=== PATIENT | female | born 1985 | race African-American/Black ===

== ENCOUNTER 2016-11-13 18:50 | Emergency (ER) | payer SELFPAY ==
--- NOTE | 2016-11-13 19:17 | ER Document Report ---
ED Medical Screen (RME) - General Stated Complaint: SORE THROAT AND CHEST Mode of Arrival: Ambulatory Information source: Patient Notes: Patient presents to the emergency department with complaints of sore throat and chest hurts when she takes a deep breath the past 2-3 days. Denies fever vomiting reports some diarrhea. I have greeted and performed a rapid initial assessment of this patient. A comprehensive ED assessment and evaluation of the patient, analysis of test results and completion of the medical decision making process will be conducted by additional ED providers. TRAVEL OUTSIDE OF THE [place] IN LAST 30 DAYS: No - Related Data Allergies/Adverse Reactions: tramadol [Tramadol] Allergy (Verified 01/23/16 16:10) Past Medical History Pulmonary Medical History: Reports: Hx Asthma, Hx Bronchitis Neurological Medical History: Reports: Hx Seizures Past Surgical History: Reports: Hx Oral Surgery - Immunizations Hx Diphtheria, Pertussis, Tetanus Vaccination: Yes - UTD Physical Exam - Vital signs Vitals: Temp Pulse Resp BP Pulse Ox 98.4 F 83 14 109/56 L 98 11/13/16 19:09 11/13/16 19:09 11/13/16 19:09 11/13/16 19:09 11/13/16 19:09 Course - Vital Signs Vital signs: Temp Pulse Resp BP Pulse Ox 98.4 F 83 14 109/56 L 98 11/13/16 19:09 11/13/16 19:09 11/13/16 19:09 11/13/16 19:09 11/13/16 19:09
[2016-11-13] MEDS ORDERED: PREDNISONE 20 MG TABLET PO ONE (21:21)
[2016-11-13] MEDS ORDERED: IPRATROPIUM/ALBUTEROL 0.5-2.5 MG/3 ML AMPUL NEB ONE (21:21)
--- NOTE | 2016-11-13 21:27 | ER Document Report ---
ED Respiratory Problem - General Chief Complaint: Sore Throat Stated Complaint: SORE THROAT AND CHEST Time seen by provider: 21:21 Mode of Arrival: Ambulatory Information source: Patient Notes: 31-year-old female presents to ED for cough or sore throat wheezing. States that her chest hurts when she takes deep breaths for the last 2 or 3 days. Denies any nausea vomiting or fever. TRAVEL OUTSIDE OF THE [place] IN LAST 30 DAYS: No - HPI Patient complains to provider of: Cough, Other - Sore throat and wheezing Onset: Other - 2-3 days Duration: Continuous Severity: Moderate Pain Level: 2 Context: Smoker Cough: Nonproductive Sputum amount: None Associated symptoms: Cough, PND, Runny nose, Sinus pain/pressure, Sore Throat Similar symptoms previously: No Recently seen / treated by doctor: No - Related Data Allergies/Adverse Reactions: tramadol [Tramadol] Allergy (Verified 11/13/16 19:16) Past Medical History - General Information source: Patient - Social History Smoking Status: Current Every Day Smoker Cigarette use (# per day): Yes - 2 CIGS PER DAY Chew tobacco use (# tins/day): No Smoking Education Provided: Yes - less than 1 minute Frequency of alcohol use: None Drug Abuse: None Occupation: call center Lives with: Other - Roommates Family History: denies: Arthritis, CAD, COPD, CVA, DM, Hyperlipidemia, Hypertension, Malignancy, Thyroid Disfunction Patient has suicidal ideation: No Patient has homicidal ideation: No - Past Medical History Cardiac Medical History: Reports: None Pulmonary Medical History: Reports: Hx Asthma, Hx Bronchitis EENT Medical History: Reports: None Neurological Medical History: Reports: Hx Seizures - One seizure Endocrine Medical History: Reports: None Renal/ Medical History: Reports: None Malignancy Medical History: Reports: None GI Medical History: Reports: None Musculoskeltal Medical History: Reports None Skin Medical History: Reports None Psychiatric Medical History: Reports: None Traumatic Medical History: Reports: None Infectious Medical History: Reports: None Past Surgical History: Reports: Hx Oral Surgery - Immunizations Immunizations up to date: Yes Hx Diphtheria, Pertussis, Tetanus Vaccination: Yes - UTD History of Influenza Vaccine for 07/2016 - 12/2016 Season: No Hx Pneumococcal Vaccination: 10/19/10 Review of Systems - Review of Systems Constitutional: Recent illness EENT: Nose discharge, Sinus discharge, Throat pain Cardiovascular: No symptoms reported Respiratory: Cough Gastrointestinal: No symptoms reported Genitourinary: No symptoms reported Female Genitourinary: No symptoms reported Musculoskeletal: No symptoms reported Skin: No symptoms reported Hematologic/Lymphatic: No symptoms reported Neurological/Psychological: No symptoms reported Physical Exam - Vital signs Vitals: Temp Pulse Resp BP Pulse Ox 98.4 F 83 14 109/56 L 98 11/13/16 19:09 11/13/16 19:09 11/13/16 19:09 11/13/16 19:09 11/13/16 19:09 Interpretation: Normal - General General appearance: Appears well, Alert - HEENT Head: Normocephalic, Atraumatic Eyes: Normal Pupils: PERRL Ears: Normal External canal: Normal Tympanic membrane: Normal Sinus: Normal Nasal: Purulent discharge, Swelling Mouth/Lips: Normal Mucous membranes: Normal Pharynx: Post nasal drainage Neck: Normal - Respiratory Respiratory status: No respiratory distress Chest status: Pain with cough, Pain with deep breathing. No: Tender, Pain on movement Breath sounds: Nonproductive cough, Wheezing Chest palpation: Normal - Cardiovascular Rhythm: Regular Heart sounds: Normal auscultation Murmur: No - Abdominal Inspection: Normal Distension: No distension Bowel sounds: Normal Tenderness: Nontender Organomegaly: No organomegaly - Back Back: Normal, Nontender - Extremities General upper extremity: Normal inspection, Nontender, Normal color, Normal ROM , Normal temperature General lower extremity: Normal inspection, Nontender, Normal color, Normal ROM , Normal temperature, Normal weight bearing. No: Gregg's sign - Neurological Neuro grossly intact: Yes Cognition: Normal Orientation: AAOx4 Bhakti Coma Scale Eye Opening: Spontaneous [place] Coma Scale Verbal: Oriented Bhakti Coma Scale Motor: Obeys Commands Bhakti Coma Scale Total: 15 Speech: Normal Motor strength normal: LUE, RUE, LLE, RLE Sensory: Normal - Psychological Associated symptoms: Normal affect, Normal mood - Skin Skin Temperature: Warm Skin Moisture: Dry Skin Color: Normal Course - Re-evaluation Re-evalutation: 11/13/16 22:59 Lungs clear no wheezes noted after her breathing treatments and prednisone. Patient sent home with prescription for prednisone and albuterol inhaler. Patient to follow-up with primary doctor - Vital Signs Vital signs: Temp Pulse Resp BP Pulse Ox 98.6 F 71 17 107/62 99 11/13/16 21:54 11/13/16 21:54 11/13/16 21:54 11/13/16 21:54 11/13/16 21:54 Discharge - Discharge Clinical Impression: Bronchospasm Upper respiratory infection Qualifiers: URI type: unspecified URI Qualified Code(s): J06.9 - Acute upper respiratory infection, unspecified Condition: Stable Disposition: HOME, SELF-CARE Instructions: Family Physicians / Practices Additional Instructions: UPPER RESPIRATORY ILLNESS: You have a viral infection of the respiratory passages -- a "cold." This common infection causes nasal congestion, drainage, and often sore throat and cough. It is highly contagious. The disease usually lasts about 10 to 14 days. There is no "cure" for the viral infection -- it must run its course. If there is a complication, such as bacterial infection in the nose, sinuses, middle ear, or bronchial tubes, antibiotics may be required. The antibiotics won't affect the virus. Drink plenty of fluids. A humidifier may help. An expectorant medication or decongestant may make you more comfortable. Use acetaminophen or ibuprofen for fever or aches. See the doctor if fever persists over two days, if there is any significant worsening of your symptoms, or if you simply fail to improve as expected. BRONCHOSPASM: You have tightness in the bronchial tubes, called bronchospasm. This often occurs with bronchial infections. Allergies, inhaled chemicals, and polluted or cold air can also provoke bronchospasm. It's more likely in patients with asthma in the family. Emergency treatment of bronchospasm may include adrenaline shots or bronchodilator aerosol. You may feel lightheaded and have a rapid pulse for an hour or two. Rest and get plenty of fluids. At home, we'll treat you with a bronchodilator inhaler. Antibiotics and corticosteroids may be required for some patients. Until you recover, avoid chemical fumes, dusts, pollens, and exercising in very cold or dry air. If you smoke, stop now!! If you develop a fever, increased wheezing, chest pain, or severe shortness of breath, you should contact the doctor immediately. COUGH-SUPPRESSANT & EXPECTORANT MEDICATION: You are to use a cough medication as needed for relief of symptoms. This medicine is a combination of an expectorant (to make the mucous thinner and more easily "coughed up") and a cough suppressant (to reduce the frequency of coughing). The cough-suppressant medicine is related to narcotics. You may experience mild nausea and sleepiness. Some patients who are very sensitive to narcotics may have stomach pain from this medicine. Taking the medicine with food reduces these side effects. Do not drive or work with machinery until you know how this medicine affects you. The expectorant should have no side effects. Iodine-containing expectorants (such as organidin) should not be taken by persons with active thyroid disease unless approved by your doctor. Call the doctor if you develop shortness of breath, hives, rash, itching, lightheadedness, or severe nausea and vomiting. INHALED BRONCHODILATORS: You have received a treatment of and/or prescription for an inhaled bronchodilator -- a medication which stimulates the airways in the lung to dilate. This improves the flow of air in asthma, bronchitis, and emphysema. These medicines have some similarity to adrenaline, and can cause similar side effects: shakiness, racing heart, and a sense of nervousness. These side effects decrease with time. Contact your doctor if these side effects are severe. Do not over-use the medicine. Too-frequent use of the inhaler may make it ineffective. Call your doctor if the inhaler is not controlling your symptoms at the prescribed doses. STEROID MEDICATION: You have been given an injection of or oral medicine of the cortisone/ steroid class. This medication is used to control inflammation or allergy. Bertrand t is usually only given for a short period of time, until the acute process subsides. There are usually no side effects from short-term use of cortisone-like medications. Some persons feel an increased sense of well-being and are not sleepy at bedtime. Long-term use of cortisone medications is best avoided, unless required for a severe condition. If your condition does not remit, or relapses after the course of corticosteroid medication, you should consult your physician. USE OF ACETAMINOPHEN (Tylenol): Acetaminophen may be taken for pain relief or fever control. It's much safer than aspirin, offering a wider range of "safe" dosages. It is safe during . Some brand names are Tylenol, Panadol, Datril, Anacin 3, Tempra, and Liquiprin. Acetaminophen can be repeated every four hours. The following are maximum recommended dosages: >89 pounds or adults 650 mg to 900 mg Acetaminophen can be repeated every four hours. Maximum dose not to exceed 4000 mg a day. SMOKING: If you smoke, you should stop smoking. The tar and chemicals in cigarette smoke are harmful. Smoking has been shown to cause: emphysema chronic bronchitis lung cancer mouth and throat cancer stomach and pancreas cancer premature aging defects In addition, smoking increases ear and lung infections in children of smokers. FOLLOW-UP CARE: If you have been referred to a physician for follow-up care, call the physician s office for an appointment as you were instructed or within the next two days. If you experience worsening or a significant change in your symptoms, notify the physician immediately or return to the Emergency Department at any time for re-evaluation. Prescriptions: Albuterol Sulfate [Proair HFA Inhalation Aerosol 8.5 gm MDI] 2 puff IH Q4H PRN # 1 mdi PRN Reason: Prednisone [Sterapred Ds] 1 pkg PO ASDIR PRN 12 Days PRN Reason: Forms: Smoking Cessation Education, Return to Work
[2016-11-13] MEDS ORDERED: ALBUTEROL SULFATE 0.083% NEB 2.5 MG/3 ML AMPUL NEB SCH (21:30)
[2016-11-13 21:54] VITALS: BP 107/62
== END 2016-11-13 22:05 | disposition home or self-care (01) ==
LOC: ER 18:50
DX: J98.01 Acute bronchospasm (principal); J06.9 Acute upper respiratory infection, unspecified; J02.9 Acute pharyngitis, unspecified; R07.9 Chest pain, unspecified; R05 Cough; R06.2 Wheezing; F17.210 Nicotine dependence, cigarettes, uncomplicated
CPT/HCPCS: 94640 ×2; 99283; 87070; 87880; J7512; J7620

== ENCOUNTER 2017-02-12 11:54 | Emergency (ER) | payer SELFPAY ==
[2017-02-12] MEDS ORDERED: ALBUTEROL SULFATE 0.083% NEB 2.5 MG/3 ML AMPUL NEB ONE (12:28)
[2017-02-12] MEDS ORDERED: IPRATROPIUM/ALBUTEROL 0.5-2.5 MG/3 ML AMPUL NEB ONE ×2 (12:28→16:47)
[2017-02-12] MEDS ORDERED: METHYLPREDNISOLONE INJ 125 MG/2 ML SDV IV ONE (12:31)
[2017-02-12] MEDS ORDERED: MAGNESIUM SULFATE/D5W 100 ML IV ONE (12:31)
[2017-02-12] MEDS ORDERED: NORMAL SALINE 1000 ML 1,000 ML IV ONE (12:32)
[2017-02-12 12:48] LABS: ABSOLUTE BASOPHILS # (AUTO) 0.1 10^3/uL (0.0-0.2); ABSOLUTE LYMPHOCYTES (AUTO) 3.4 10^3/uL (0.5-4.7); ABSOLUTE MONOCYTES (AUTO) 1.1 10^3/uL (0.1-1.4); ABSOLUTE NEUT (AUTO) 6.8 10^3/uL (1.7-8.2); BASOPHILS % (AUTO) 1.1 % (0-2); HEMATOCRIT 42.4 % (36.0-47.0); HEMOGLOBIN 14.1 g/dL (12.0-15.5); HGB HCT DIFFERENCE -0.1; LYMPHOCYTES % (AUTO) 27.2 % (13-45); MEAN CORPUSCULAR HEMOGLOBIN 29.1 pg (27.0-33.4); MEAN CORPUSCULAR HGB CONC 33.3 g/dL (32.0-36.0); MEAN CORPUSCULAR VOLUME 87 fl (80-97); RED BLOOD COUNT 4.86 10^6/uL (3.72-5.28); RED CELL DISTRIBUTION WIDTH 13.1 % (11.5-14.0); SEGMENTED NEUTROPHILS % (AUTO) 54.7 % (42-78); WHITE BLOOD COUNT 12.5 10^3/uL (4.0-10.5)
--- NOTE | 2017-02-12 14:27 | EKG REPORT ---
SEVERITY:- OTHERWISE NORMAL ECG - SINUS ARRHYTHMIA, RATE [id number] : Confirmed by: Tanmay Mata 12-Feb-2017 14:26:36
[2017-02-12 15:04] LABS: VENOUS BLOOD BASE EXCESS -2.2 mmol/L; VENOUS BLOOD HCO3 22.8 mmol/L (20-32); VENOUS BLOOD PCO2 39.9 mmHg (35-63); VENOUS BLOOD PH 7.38 (7.30-7.42)
[2017-02-12 15:22] LABS: ANION GAP 9 (5-19); BLOOD UREA NITROGEN 6 mg/dL (7-20); CALCIUM 8.8 mg/dL (8.4-10.2); CARBON DIOXIDE 24 mmol/L (22-30); CHLORIDE 109 mmol/L (98-107); CREATININE RESULT 0.67 mg/dL (0.52-1.25); GLUCOSE 90 mg/dL (75-110); MAGNESIUM 2.6 mg/dL (1.6-2.3); POTASSIUM 4.4 mmol/L (3.6-5.0); SODIUM 141.5 mmol/L (137-145)
--- NOTE | 2017-02-12 15:46 | ER Document Report ---
ED General - General Chief Complaint: Shortness Of Breath Stated Complaint: SHORTNESS OF BREATH TRAVEL OUTSIDE OF THE [place] IN LAST 30 DAYS: No COUNTRY TRAVELED TO/FROM: [facility] - [facility] Patient complains to provider of: shortness of breath Notes: Patient coming in for shortness of breath. Patient denies history of asthma COPD however states she's had episode for difficulty breathing. Patient has audible wheezes and states he can upon evaluation. Patient denies any fevers chills productive cough. Patient denies smoking. Patient states symptoms acutely following up from a nightmare. Patient states did recently traveled from [place] denies any estrogen or hormone replacement denies control - Related Data Allergies/Adverse Reactions: tramadol [Tramadol] Allergy (Verified 02/12/17 11:58) Past Medical History - Social History Smoking Status: Former Smoker Chew tobacco use (# tins/day): No Frequency of alcohol use: None Drug Abuse: None Family History: denies: Arthritis, CAD, COPD, CVA, DM, Hyperlipidemia, Hypertension, Malignancy, Thyroid Disfunction Patient has suicidal ideation: No Patient has homicidal ideation: No Pulmonary Medical History: Reports: Hx Asthma, Hx Bronchitis Neurological Medical History: Reports: Hx Seizures - One seizure Renal/ Medical History: Denies: Hx Peritoneal Dialysis Past Surgical History: Reports: Hx Oral Surgery - Immunizations Immunizations up to date: Yes Hx Diphtheria, Pertussis, Tetanus Vaccination: Yes - UTD Hx Pneumococcal Vaccination: 10/19/10 Review of Systems - Review of Systems Constitutional: No symptoms reported EENT: No symptoms reported Cardiovascular: No symptoms reported Respiratory: Cough, Short of breath, Wheezing Gastrointestinal: No symptoms reported Genitourinary: No symptoms reported Female Genitourinary: No symptoms reported Musculoskeletal: No symptoms reported Skin: No symptoms reported Hematologic/Lymphatic: No symptoms reported Neurological/Psychological: No symptoms reported -: Yes All other systems reviewed and negative Physical Exam - Vital signs Vitals: Temp Pulse Resp BP Pulse Ox 97.6 F 91 38 H 120/83 94 02/12/17 11:55 02/12/17 11:55 02/12/17 11:55 02/12/17 11:55 02/12/17 11:55 Interpretation: Normal - General General appearance: Appears well, Alert - HEENT Head: Normocephalic, Atraumatic Eyes: Normal Pupils: PERRL - Respiratory Respiratory status: No respiratory distress, Tachypnea Chest status: Nontender Breath sounds: Rhonchi, Wheezing Chest palpation: Normal - Cardiovascular Rhythm: Regular Heart sounds: Normal auscultation Murmur: No - Abdominal Inspection: Normal Distension: No distension Bowel sounds: Normal Tenderness: Nontender Organomegaly: No organomegaly - Back Back: Normal, Nontender - Extremities General upper extremity: Normal inspection, Nontender, Normal color, Normal ROM , Normal temperature General lower extremity: Normal inspection, Nontender, Normal color, Normal ROM , Normal temperature, Normal weight bearing. No: Gregg's sign - Neurological Neuro grossly intact: Yes Cognition: Normal Orientation: AAOx4 Bhakti Coma Scale Eye Opening: Spontaneous [place] Common Coma Scale Verbal: Oriented [place] Common Coma Scale Motor: Obeys Commands Bhakti Coma Scale Total: 15 Speech: Normal Motor strength normal: LUE, RUE, LLE, RLE Sensory: Normal - Psychological Associated symptoms: Normal affect, Normal mood - Skin Skin Temperature: Warm Skin Moisture: Dry Skin Color: Normal Course - Re-evaluation Re-evalutation: 02/12/17 15:52 After breathing treatments and magnesium patient did have some mild improvement of her symptoms. Patient was seen sleeping with no signs of hypoxia tachypnea. Resolved. Patient was ambulated with no signs of hypoxia. Patient was to be a good candidate for outpatient management of her symptoms. Steroids and bronchodilators were given to the patient. - Vital Signs Vital signs: Temp Pulse Resp BP Pulse Ox 97.6 F 91 20 107/79 99 02/12/17 11:55 02/12/17 11:55 02/12/17 14:01 02/12/17 14:00 02/12/17 14:01 - Laboratory Result Diagrams: 02/12/17 12:30 02/12/17 14:44 Laboratory results interpreted by me: 02/12/17 02/12/17 12:30 14:44 WBC 12.5 H Eosinophils % 8.0 H Absolute Eosinophils 1.0 H Chloride 109 H BUN 6 L Magnesium 2.6 H Discharge - Discharge Clinical Impression: Acute asthma exacerbation Qualifiers: Asthma severity: unspecified severity Qualified Code(s): J45.901 - Unspecified asthma with (acute) exacerbation Condition: Good Disposition: HOME, SELF-CARE Instructions: Asthma (COUNT INCLUDES THE [facility]) Additional Instructions: Please use the inhaler that we gave you 2 puffs every 4 hours for the next 5 days. You may use the inhaler in between that 4 hours if you feels short of breath. Please stay away from people that smoke Please take steroids as prescribed. Return to the ER symptoms worsen. Prescriptions: Prednisone [Deltasone 20 mg Tablet] 3 tab PO DAILY 5 Days Forms: Return to Work
[2017-02-12] MEDS ORDERED: PREDNISONE 20 MG TABLET PO ONE (15:49)
[2017-02-12] MEDS ORDERED: ALBUTEROL SULFATE HFA (90 MCG/PUFF) 8 GM MDI (1 MDI/ER DISP) IH ONE (15:49)
[2017-02-12 16:32] VITALS: BP 105/63
== END 2017-02-12 18:14 | disposition home or self-care (01) ==
LOC: ER 11:54
DX: J45.901 Unspecified asthma with (acute) exacerbation (principal); R06.02 Shortness of breath; R05 Cough; Z87.891 Personal history of nicotine dependence
CPT/HCPCS: 93005; 94640 ×2; 99285; 96375; 96365; 36415; 83735; 84703; 85025; 80048; 82803; 71020; 93010; J2930; J3475; J7512; J7030; J3490; J7620

== ENCOUNTER 2017-03-12 13:54 | Emergency (ER) | payer SELFPAY ==
[2017-03-12] MEDS ORDERED: ACETAMINOPHEN 325 MG TABLET PO ONE (14:57)
--- NOTE | 2017-03-12 15:00 | ER Document Report ---
ED Medical Screen (RME) - General Chief Complaint: Syncope Stated Complaint: FALL/HEADACHE,FINGERS NUMB Time Seen by Provider: 03/12/17 14:55 Mode of Arrival: Ambulatory Information source: Patient Notes: pt states that she went to the bathroom last pm and woke up to her significant other waking her. Pt uncertain if she hit her head. Pt c/o DOVER pain and left hand tingling. Pt reports n/v prior to passing out, but denies any episodes since then. Pt reports having a seizure 10 yrs ago that they attributed to taking tramadol. hx: asthma TRAVEL OUTSIDE OF THE [place] IN LAST 30 DAYS: No COUNTRY TRAVELED TO/FROM: [facility] - Related Data Allergies/Adverse Reactions: tramadol [Tramadol] Allergy (Verified 03/12/17 14:46) Past Medical History Pulmonary Medical History: Reports: Hx Asthma, Hx Bronchitis Neurological Medical History: Reports: Hx Seizures - One seizure Renal/ Medical History: Denies: Hx Peritoneal Dialysis Past Surgical History: Reports: Hx Oral Surgery - Immunizations Immunizations up to date: Yes Hx Diphtheria, Pertussis, Tetanus Vaccination: Yes - UTD Physical Exam - Vital signs Vitals: Temp Pulse Resp BP Pulse Ox 98 F 81 16 108/64 97 03/12/17 14:00 03/12/17 14:00 03/12/17 14:00 03/12/17 14:00 03/12/17 14:00 - Neurological Cognition: Normal Bhakti Coma Scale Eye Opening: Spontaneous [place] Coma Scale Verbal: Oriented Bhakti Coma Scale Motor: Obeys Commands Bhakti Coma Scale Total: 15 Course - Vital Signs Vital signs: Temp Pulse Resp BP Pulse Ox 98 F 81 16 108/64 97 03/12/17 14:00 03/12/17 14:00 03/12/17 14:00 03/12/17 14:00 03/12/17 14:00
[2017-03-12 15:42] LABS: ABSOLUTE BASOPHILS # (AUTO) 0.1 10^3/uL (0.0-0.2); ABSOLUTE EOSINOPHILS # (AUTO) 0.6 10^3/uL (0.0-0.6); ABSOLUTE LYMPHOCYTES (AUTO) 3.7 10^3/uL (0.5-4.7); ABSOLUTE MONOCYTES (AUTO) 1.3 10^3/uL (0.1-1.4); ABSOLUTE NEUT (AUTO) 7.7 10^3/uL (1.7-8.2); BASOPHILS % (AUTO) 0.7 % (0-2); EOSINOPHILS % (AUTO) 4.7 % (0-6); HEMATOCRIT 42.8 % (36.0-47.0); HEMOGLOBIN 13.8 g/dL (12.0-15.5); HGB HCT DIFFERENCE -1.4; LYMPHOCYTES % (AUTO) 27.2 % (13-45); MEAN CORPUSCULAR HEMOGLOBIN 28.4 pg (27.0-33.4); MEAN CORPUSCULAR HGB CONC 32.2 g/dL (32.0-36.0); MEAN CORPUSCULAR VOLUME 88 fl (80-97); RED BLOOD COUNT 4.86 10^6/uL (3.72-5.28); RED CELL DISTRIBUTION WIDTH 13.1 % (11.5-14.0); SEGMENTED NEUTROPHILS % (AUTO) 57.4 % (42-78); WHITE BLOOD COUNT 13.4 10^3/uL (4.0-10.5)
--- NOTE | 2017-03-12 15:49 | RADIOLOGY REPORT (SQ) ---
EXAM DESCRIPTION: CT HEAD WITHOUT COMPLETED DATE/TIME: 03/12/2017 3:37 pm REASON FOR STUDY: syncope, HI COMPARISON: None. TECHNIQUE: Axial images acquired through the brain without intravenous contrast. Images reviewed wi th bone, brain and subdural windows. Images stored on PACS. All CT scanners at this facility use dose modulation, iterative reconstruction, and/or weight based d osing when appropriate to reduce radiation dose to as low as reasonably achievable (ALARA). [facility]: Dose Right [facility]: CareDose [facility]: Dose Right [facility]: Teradose 4D [facility]: Newsy RADIATION DOSE: 64.61 mGy. LIMITATIONS: None. FINDINGS: VENTRICLES: Normal size and contour. CEREBRUM: No masses. No hemorrhage. No midline shift. Normal luke/white matter differentiation. N o evidence for acute infarction. CEREBELLUM: No masses. No hemorrhage. No alteration of density. No evidence for acute infarction. EXTRAAXIAL SPACES: No fluid collections. No masses. ORBITS AND GLOBE: No intra- or extraconal masses. Normal contour of globe without masses. CALVARIUM: No fracture. PARANASAL SINUSES: No fluid or mucosal thickening. SOFT TISSUES: No mass or hematoma. OTHER: No other significant finding. IMPRESSION: NORMAL BRAIN CT WITHOUT CONTRAST. TECHNICAL DOCUMENTATION: JOB ID: [id number] Quality ID # [id number]: Final reports with documentation of one or more dose reduction techniques (e.g., Au tomated exposure control, adjustment of the mA and/or kV according to patient size, use of iterative reconstruction technique) 2010 [employer]- All Rights Reserved
[2017-03-12 16:06] LABS: ALANINE AMINOTRANSFERASE 23 U/L (9-52); ALBUMIN 3.9 g/dL (3.5-5.0); ALKALINE PHOSPHATASE 49 U/L (38-126); ANION GAP 11 (5-19); ASPARTATE AMINO TRANSFERASE 20 U/L (14-36); BILIRUBIN,DIRECT 0.2 mg/dL (0.0-0.4); BILIRUBIN,TOTAL 0.4 mg/dL (0.2-1.3); BLOOD UREA NITROGEN 9 mg/dL (7-20); CALCIUM 9.6 mg/dL (8.4-10.2); CARBON DIOXIDE 29 mmol/L (22-30); CHLORIDE 102 mmol/L (98-107); CREATININE RESULT 0.77 mg/dL (0.52-1.25); GLUCOSE 95 mg/dL (75-110); POTASSIUM 4.3 mmol/L (3.6-5.0); SODIUM 141.6 mmol/L (137-145); TOTAL PROTEIN 6.3 g/dL (6.3-8.2)
--- NOTE | 2017-03-12 16:07 | RADIOLOGY REPORT (SQ) ---
EXAM DESCRIPTION: CT CERVICAL SPINE WITHOUT COMPLETED DATE/TIME: 03/12/2017 3:38 pm REASON FOR STUDY: neck pain, paresthesia L hand COMPARISON: None. TECHNIQUE: Axial images acquired through the cervical spine without intravenous contrast. Images re viewed with lung, soft tissue and bone windows. Reconstructed coronal and sagittal MPR images review ed. Images stored on PACS. All CT scanners at this facility use dose modulation, iterative reconstruction, and/or weight based d osing when appropriate to reduce radiation dose to as low as reasonably achievable (ALARA). [facility]: Dose Right [facility]: CareDose [facility]: Dose Right [facility]: Teradose 4D [facility]: Laura Sapiens RADIATION DOSE: 11.22 mGy. LIMITATIONS: None. FINDINGS: ALIGNMENT: Anatomic. MINERALIZATION: Normal. VERTEBRAL BODIES: No fractures or dislocation. DISCS: No significant disc disease. FACETS, LATERAL MASSES, POSTERIOR ELEMENTS: No fractures. No dislocation. No acute findings. Ectat ic vertebral arteries particularly on the left with associated dilatation of the transverse foramina . HARDWARE: None in the spine. VISUALIZED RIBS: No fractures. LUNG APICES AND SOFT TISSUES: No significant or acute findings. OTHER: No other significant finding. IMPRESSION: 1. No evidence of acute fracture. 2. Ectatic vertebral arteries particularly on the left which could be causing nerve root symptomatol ogy. TECHNICAL DOCUMENTATION: JOB ID: [id number] Quality ID # [id number]: Final reports with documentation of one or more dose reduction techniques (e.g., Au tomated exposure control, adjustment of the mA and/or kV according to patient size, use of iterative reconstruction technique) 2010 [employer]- All Rights Reserved
[2017-03-12 16:39] LABS: APPEARANCE,URINE CLEAR; BILIRUBIN,URINE NEGATIVE (NEGATIVE); GLUCOSE, URINE NEGATIVE (NEGATIVE); KETONES,URINE NEGATIVE (NEGATIVE); LEUKOCYTE ESTERASE,URINE TRACE (NEGATIVE); NITRITE,URINE NEGATIVE (NEGATIVE); PROTEIN,URINE NEGATIVE (NEGATIVE); URINE SPECIFIC GRAVITY 1.015; UROBILINOGEN,URINE NEGATIVE mg/dL (<2.0)
[2017-03-12 16:46] LABS: URINE BARBITURATES SCREEN NEGATIVE; URINE METHADONE SCREEN NEGATIVE; URINE OPIATES LOW NEGATIVE; URINE PHENCYCLIDINE SCREEN NEGATIVE
--- NOTE | 2017-03-12 18:37 | ER Document Report ---
ED General - General Chief Complaint: Syncope Stated Complaint: FALL/HEADACHE Time Seen by Provider: 03/12/17 14:55 Mode of Arrival: Ambulatory Notes: Patient is a 31-year-old female without past medical history presents after syncopal episode last night. Patient states that she woke up to go to the restroom in the middle of the night and believes she got lightheaded and then had an episode of syncope. She believes she struck her forehead but does not recall the events. She comes in today primarily concerned about some degree of confusion about the events as well as feeling "off" all day today including a dull, constant, mild headache that is bifrontal in nature. Notes that lights, sounds, and activity worsen her headache. She notes that laying down including her eyes improves the headache. She has no history of similar injuries in the past. She does not use anticoagulation. She has had that she has had paresthesias of her left third through fifth digits and also notes a dull, aching pain to her medial left elbow. She has not seen a primary care doctor regarding today's concerns. She denies any vomiting, weakness, or changes in vision. TRAVEL OUTSIDE OF THE [place] IN LAST 30 DAYS: No COUNTRY TRAVELED TO/FROM: [facility] - Related Data Allergies/Adverse Reactions: tramadol [Tramadol] Allergy (Verified 03/12/17 14:46) Past Medical History - General Information source: Patient - Social History Smoking Status: Never Smoker Frequency of alcohol use: None Drug Abuse: None Lives with: Spouse/Significant other Family History: denies: Arthritis, CAD, COPD, CVA, DM, Hyperlipidemia, Hypertension, Malignancy, Thyroid Disfunction Patient has suicidal ideation: No Patient has homicidal ideation: No Pulmonary Medical History: Reports: Hx Asthma, Hx Bronchitis Neurological Medical History: Reports: Hx Seizures - One seizure Renal/ Medical History: Denies: Hx Peritoneal Dialysis Past Surgical History: Reports: Hx Oral Surgery - Immunizations Immunizations up to date: Yes Hx Diphtheria, Pertussis, Tetanus Vaccination: Yes - UTD Hx Pneumococcal Vaccination: 10/19/10 Review of Systems - Review of Systems Notes: Constitutional: Negative for fever. HENT: Negative for sore throat. Eyes: Negative for visual changes. Cardiovascular: Negative for chest pain. Respiratory: Negative for shortness of breath. Gastrointestinal: Negative for abdominal pain, vomiting or diarrhea. Genitourinary: Negative for dysuria. Musculoskeletal: Negative for back pain. Skin: Negative for rash. Neurological: Positive for headaches, and paresthesias in the left third through fifth digit 10 point ROS negative except as marked above and in HPI. Physical Exam - Vital signs Vitals: Temp Pulse Resp BP Pulse Ox 98 F 81 16 108/64 97 03/12/17 14:00 03/12/17 14:00 03/12/17 14:00 03/12/17 14:00 03/12/17 14:00 Interpretation: Normal Notes: PHYSICAL EXAMINATION: GENERAL: Well-appearing, no acute distress. HEAD: Atraumatic, normocephalic. EYES: Pupils equal round and reactive to light, extraocular movements intact, sclera anicteric, conjunctiva are normal. ENT: nares patent, no oral pharyngeal trauma. No hemotympanum, no Jacinto's sign , no raccoon eyes. NECK: No midline cervical spine tenderness. Patient able to move their head to 45 bilaterally without any discomfort. LUNGS: Breath sounds clear to auscultation bilaterally and equal. No wheezes rales or rhonchi. HEART: Regular rate and rhythm without murmurs. CHEST WALL: No ecchymosis over the chest wall. ABDOMEN: Soft, nontender, normoactive bowel sounds. No guarding, no rebound. No seatbelt sign. EXTREMITIES: Normal range of motion, no pitting or edema. No long bone deformities. BACK: No midline spinal tenderness, step-offs, or deformities. NEUROLOGICAL: Face symmetric. Tongue protrudes midline. Extraocular motions intact. Pupils are 2 mm and equally reactive. Normal speech, normal gait. 5 out of 5 strength in both the distal and proximal upper and lower extremities bilaterally. Sensation is grossly intact throughout. Finger to nose testing normal. Pronator drift normal. RMU sensory distribution intact. PSYCH: Normal mood, normal affect. SKIN: Warm, Dry, normal turgor, no rashes or lesions noted. Course - Re-evaluation Re-evalutation: 03/12/17 18:33 Patient presents after an apparent syncopal episode last night in which she struck her head. Syncope is of unclear etiology. Patient normotensive, alert, without focal neurologic deficits at time of arrival. Denies syncope was during exertion. No preceding symptoms of palpitations, chest pain, or shortness of breath. Patient asymptomatic at time of arrival. EKG is without evidence of HCOM , right heart strain, ST changes to suggest ischemia, prolong QTc, delta wave, epsilon wave, or Brugada syndrome. Patient denies any family history of sudden cardiac , personal history of of structural heart disease. Patient denies any symptoms to suggest an acute PE, IA, TAD, SAH, seizure, or acute GI bleed as the etiology of their syncope. On exam, no murmurs to suggest critical aortic stenosis as possible etiology. Patient is also complaining of symptoms consistent with an acute concussion complaining of a dull, constant throbbing headache with associated anterior and retrograde amnesia. She also complains of spotting of her vision. A CT of the head was obtained in triage as does not demonstrate any evidence of acute intracranial hemorrhage. For unclear reasons a CT of cervical spine was also obtained despite patient not complaining of neck pain. Patient has no midline cervical spine tenderness and is able to range her neck 45 bilaterally without discomfort or difficulty. 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 I do not believe that this is acutely clinically significant at this time as it is bilateral and patient does not have any symptoms to suggest an acute vertebral artery dissection. She has no facial symptoms and her complaint of numbness and tingling in her hands are perfectly in the ulnar distribution. She does have acute tenderness and bruising over the medial elbow consistent with an acute blunt injury to the ulnar nerve. She has no actual focal neurologic deficit and only complains of paresthesia to the ulnar nerve distribution. She has full biceps and triceps strength bilaterally. She is able to ambulate without difficulty both on heels and toes. Given the findings on CT the cervical spine that were incidentally noted, I discussed this with the patient at length and requested that she follow-up with neurology as an outpatient. I have also asked her to start a daily aspirin. At this time will discharge with return precautions and follow-up recommendations. Verbal discharge instructions given a the bedside and opportunity for questions given. Medication warnings reviewed. Patient is in agreement with this plan and has verbalized understanding of return precautions and the need for primary care follow-up in the next 24-72 hours. - Vital Signs Vital signs: Temp Pulse Resp BP Pulse Ox 97.6 F 72 16 112/60 98 03/12/17 18:59 03/12/17 18:59 03/12/17 18:59 03/12/17 18:59 03/12/17 18:59 - Laboratory Result Diagrams: 03/12/17 15:23 03/12/17 15:23 Laboratory results interpreted by me: 03/12/17 03/12/17 13:23 15:23 WBC 13.4 H Ur Leukocyte Esterase TRACE H - Diagnostic Test Radiology reviewed: Reports reviewed - EKG Interpretation by Me Additional EKG results interpreted by me: 03/12/17 18:37 Normal sinus rhythm. Rate 72. No ST elevations or depressions. QTC is 460. Discharge - Discharge Clinical Impression: Irritation of left ulnar nerve Syncope Qualifiers: Syncope type: unspecified Qualified Code(s): R55 - Syncope and collapse Concussion Qualifiers: Encounter type: initial encounter Loss of consciousness presence/duration: with LOC of 30 min or less Qualified Code(s): S06.0X1A - Concussion with loss of consciousness of 30 minutes or less, initial encounter Condition: Good Disposition: HOME, SELF-CARE Additional Instructions: You have likely sustained a contusion (bruise) to your head. If you had a CT scan done, it did not show any evidence of serious injury or bleeding. Symptoms to expect from a concussion include nausea, mild to moderate headache, difficulty concentrating or sleeping, and mild lightheadedness. These symptoms should improve over the next few days to weeks. Return to the emergency department or follow-up with your primary care doctor if your symptoms are not improving over this time. Signs of a more serious head injury include vomiting , severe headache, excessive sleepiness or confusion, and weakness or numbness in your face, arms or legs. Return immediately to the Emergency Department if you experience any of these more concerning symptoms. Rest, avoid strenuous physical or mental activity, and avoid activities that could potentially result in another head injury until all your symptoms from this head injury are completely resolved for at least 2-3 weeks. If you participate in sports, get cleared by your doctor or systems trainer before returning to play. You may take ibuprofen or acetaminophen over the counter according to label instructions for mild headache or scalp soreness. As we discussed, please also follow-up with neurology regarding the incidental findings on your CT of the neck. Please start taking a baby aspirin (81mg) daily until you are cleared by neurology. Referrals: ABDIRAHMAN MATTHEW MD [ACTIVE STAFF] - Follow up as needed
--- NOTE | 2017-03-12 18:45 | EKG REPORT ---
SEVERITY:- ABNORMAL ECG - SINUS RHYTHM NONSPECIFIC T ABNORMALITIES, ANTERIOR LEADS : Confirmed by: Satish Reyes MD 12-Mar-2017 18:43:52
[2017-03-12 19:00] VITALS: BP 112/60
== END 2017-03-12 18:59 | disposition home or self-care (01) ==
LOC: ER 13:54
DX: S06.0X1A Concussion with loss of consciousness of 30 minutes or less, initial encounter (principal); S50.00XA Contusion of unspecified elbow, initial encounter; W19.XXXA Unspecified fall, initial encounter; R55 Syncope and collapse; G56.22 Lesion of ulnar nerve, left upper limb; R51 Headache; R41.2 Retrograde amnesia; R20.2 Paresthesia of skin; H53.8 Other visual disturbances; R20.0 Anesthesia of skin; M25.522 Pain in left elbow; J45.909 Unspecified asthma, uncomplicated; Z88.5 Allergy status to narcotic agent
CPT/HCPCS: 36415; 70450; 72125; 80053; 80307; 81001; 84703; 85025; 93005; 93010; 99284

== ENCOUNTER 2017-07-16 14:49 | Emergency (ER) | payer SELFPAY ==
[2017-07-16 14:57] VITALS: BP 129/80
[2017-07-16] MEDS ORDERED: NORMAL SALINE 1000 ML 1,000 ML IV PRN (15:29)
[2017-07-16] MEDS ORDERED: METOCLOPRAMIDE HCL INJ/PF 10 MG/2 ML SDV IV ONE (15:29)
[2017-07-16 16:17] LABS: ABSOLUTE BASOPHILS # (AUTO) 0.1 10^3/uL (0.0-0.2); ABSOLUTE MONOCYTES (AUTO) 0.6 10^3/uL (0.1-1.4); MEAN CORPUSCULAR HEMOGLOBIN 28.6 pg (27.0-33.4)
[2017-07-16 16:20] LABS: ABSOLUTE LYMPHOCYTES (AUTO) 1.6 10^3/uL (0.5-4.7); ABSOLUTE NEUT (AUTO) 17.5 10^3/uL (1.7-8.2); BASOPHILS % (AUTO) 0.6 % (0-2); EOSINOPHILS % (AUTO) 0.1 % (0-6); HEMATOCRIT 38.2 % (36.0-47.0); HEMOGLOBIN 12.7 g/dL (12.0-15.5); HGB HCT DIFFERENCE -0.1; LYMPHOCYTES % (AUTO) 8.1 % (13-45); MEAN CORPUSCULAR HGB CONC 33.1 g/dL (32.0-36.0); MEAN CORPUSCULAR VOLUME 86 fl (80-97); RED BLOOD COUNT 4.43 10^6/uL (3.72-5.28); RED CELL DISTRIBUTION WIDTH 13.3 % (11.5-14.0); SEGMENTED NEUTROPHILS % (AUTO) 88.2 % (42-78); WHITE BLOOD COUNT 19.8 10^3/uL (4.0-10.5)
[2017-07-16 16:21] LABS: ALANINE AMINOTRANSFERASE 30 U/L (9-52); ALBUMIN 4.3 g/dL (3.5-5.0); ALKALINE PHOSPHATASE 59 U/L (38-126); ANION GAP 11 (5-19); ASPARTATE AMINO TRANSFERASE 31 U/L (14-36); BILIRUBIN,DIRECT 0.3 mg/dL (0.0-0.4); BILIRUBIN,TOTAL 0.5 mg/dL (0.2-1.3); BLOOD UREA NITROGEN 7 mg/dL (7-20); CALCIUM 9.9 mg/dL (8.4-10.2); CARBON DIOXIDE 23 mmol/L (22-30); CHLORIDE 108 mmol/L (98-107); CREATININE RESULT 0.62 mg/dL (0.52-1.25); GLUCOSE 106 mg/dL (75-110); LIPASE 21.6 U/L (23-300); POTASSIUM 4.5 mmol/L (3.6-5.0); SODIUM 141.9 mmol/L (137-145); TOTAL PROTEIN 6.9 g/dL (6.3-8.2)
[2017-07-16 17:15] LABS: APPEARANCE,URINE CLEAR; BILIRUBIN,URINE NEGATIVE (NEGATIVE); GLUCOSE, URINE NEGATIVE (NEGATIVE); KETONES,URINE NEGATIVE (NEGATIVE); LEUKOCYTE ESTERASE,URINE NEGATIVE (NEGATIVE); NITRITE,URINE NEGATIVE (NEGATIVE); PROTEIN,URINE 30 mg/dL (NEGATIVE); URINE SPECIFIC GRAVITY 1.032; UROBILINOGEN,URINE NEGATIVE mg/dL (<2.0)
--- NOTE | 2017-07-16 18:41 | RADIOLOGY REPORT (SQ) ---
EXAM DESCRIPTION: CT ABD/PELVIS NO ORAL OR IV COMPLETED DATE/TIME: 07/16/2017 6:16 pm REASON FOR STUDY: bilat lq abd pain COMPARISON: None. TECHNIQUE: CT scan of the abdomen and pelvis performed without intravenous or oral contrast. Images reviewed with lung, soft tissue, and bone windows. Reconstructed coronal and sagittal MPR images revi ewed. All images stored on PACS. All CT scanners at this facility use dose modulation, iterative reconstruction, and/or weight based d osing when appropriate to reduce radiation dose to as low as reasonably achievable (ALARA). [facility]: Dose Right [facility]: CareDose [facility]: Dose Right [facility]: Teradose 4D [facility]: Liquiteria RADIATION DOSE: Up-to-date CT equipment and radiation dose reduction techniques were employed. CTDIv ol: 2.2 mGy. DLP: 107 mGy-cm.mGy. LIMITATIONS: None. FINDINGS: LOWER CHEST: No significant findings. No nodules or infiltrates. NON-CONTRASTED LIVER, SPLEEN, ADRENALS: Evaluation limited by lack of IV contrast. No identified sign ificant masses. PANCREAS: No masses. No peripancreatic inflammatory changes. GALLBLADDER: No identified stones by CT criteria. No inflammatory changes to suggest cholecystitis. RIGHT KIDNEY AND URETER: No suspicious masses. Assessment limited by lack of IV contrast. No signif icant calcifications. No hydronephrosis or hydroureter. LEFT KIDNEY AND URETER: No suspicious masses. Assessment limited by lack of IV contrast. No signifi cant calcifications. No hydronephrosis or hydroureter. AORTA AND RETROPERITONEUM: No aneurysm. No retroperitoneal masses or adenopathy. BOWEL AND PERITONEAL CAVITY: No obvious masses or inflammatory changes. No free fluid. APPENDIX: Normal. PELVIS, BLADDER, AND ABDOMINAL WALL:No abnormal masses. No free fluid. Bladder normal. BONES: No significant findings. OTHER: No other significant finding. IMPRESSION: NO SIGNIFICANT OR ACUTE PROCESS IN THE ABDOMEN OR PELVIS. COMMENT: Quality ID # [id number]: Final reports with documentation of one or more dose reduction techniques (e.g., Automated exposure control, adjustment of the mA and/or kV according to patient size, use of iterative reconstruction technique) TECHNICAL DOCUMENTATION: JOB ID: [id number]- All Rights Reserved
--- NOTE | 2017-07-16 18:58 | ER Document Report ---
ED General - General Chief Complaint: Nausea/Vomiting Stated Complaint: VOMITING Time Seen by Provider: 07/16/17 15:29 Mode of Arrival: Ambulatory Information source: Patient Notes: Patient states she often gets abdominal cramping and vomiting with her menstrual cycle. She states she is currently on her menstrual cycle and has been having severe vomiting. The pain is a crampy sensation and radiates to her back. It is moderate to severe. It is constant. It is been present for about 1 day. Nothing makes it better or worse. No problems with diarrhea. TRAVEL OUTSIDE OF THE [place] IN LAST 30 DAYS: No COUNTRY TRAVELED TO/FROM: [facility] - Related Data Allergies/Adverse Reactions: tramadol [Tramadol] Allergy (Verified 07/16/17 14:56) Past Medical History - General Information source: Patient - Social History Smoking Status: Former Smoker Chew tobacco use (# tins/day): No Frequency of alcohol use: None Drug Abuse: None Family History: denies: Arthritis, CAD, COPD, CVA, DM, Hyperlipidemia, Hypertension, Malignancy, Thyroid Disfunction Pulmonary Medical History: Reports: Hx Asthma, Hx Bronchitis Neurological Medical History: Reports: Hx Seizures - One seizure Renal/ Medical History: Denies: Hx Peritoneal Dialysis Past Surgical History: Reports: Hx Oral Surgery - Immunizations Immunizations up to date: Yes Hx Diphtheria, Pertussis, Tetanus Vaccination: Yes - 2016 Hx Pneumococcal Vaccination: 10/19/10 Review of Systems - Review of Systems Constitutional: Malaise, Weakness Cardiovascular: denies: Chest pain, Palpitations Respiratory: denies: Cough, Short of breath Gastrointestinal: Nausea, Vomiting -: Yes All other systems reviewed and negative Physical Exam - Vital signs Vitals: Temp Pulse Resp BP Pulse Ox 97.5 F 57 L 14 129/80 H 100 07/16/17 14:56 07/16/17 14:56 07/16/17 14:56 07/16/17 14:56 07/16/17 14:56 Interpretation: Normal - General General appearance: Appears well, Alert - HEENT Head: Normocephalic, Atraumatic Eyes: Normal Pupils: PERRL - Respiratory Respiratory status: No respiratory distress Chest status: Nontender Breath sounds: Normal Chest palpation: Normal - Cardiovascular Rhythm: Regular Heart sounds: Normal auscultation Murmur: No - Abdominal Inspection: Normal Distension: No distension Bowel sounds: Normal Tenderness: Tender - Mild diffuse tenderness to palpation Organomegaly: No organomegaly - Back Back: Normal, Nontender - Extremities General upper extremity: Normal inspection, Nontender, Normal color, Normal ROM , Normal temperature General lower extremity: Normal inspection, Nontender, Normal color, Normal ROM , Normal temperature, Normal weight bearing. No: Gregg's sign - Neurological Neuro grossly intact: Yes Cognition: Normal Orientation: AAOx4 Bhakti Coma Scale Eye Opening: Spontaneous Bhakti Coma Scale Verbal: Oriented [place] Coma Scale Motor: Obeys Commands [place] Coma Scale Total: 15 Speech: Normal Motor strength normal: LUE, RUE, LLE, RLE Sensory: Normal - Psychological Associated symptoms: Normal affect, Normal mood - Skin Skin Temperature: Warm Skin Moisture: Dry Skin Color: Normal Course - Vital Signs Vital signs: Temp Pulse Resp BP Pulse Ox 97.5 F 57 L 14 129/80 H 100 07/16/17 14:56 07/16/17 14:56 07/16/17 14:56 07/16/17 14:56 07/16/17 14:56 - Laboratory Result Diagrams: 07/16/17 15:52 07/16/17 15:52 Laboratory results interpreted by me: 07/16/17 07/16/17 07/16/17 15:52 15:52 16:54 WBC 19.8 H Seg Neutrophils % 88.2 H Lymphocytes % 8.1 L Absolute Neutrophils 17.5 H Chloride 108 H Lipase 21.6 L Urine Protein 30 H Urine Ascorbic Acid 20 H - Diagnostic Test Radiology reviewed: Image reviewed, Reports reviewed - CT the abdomen shows no evidence of acute intra-abdominal pathology Discharge - Discharge Clinical Impression: Dysmenorrhea Condition: Stable Disposition: HOME, SELF-CARE Instructions: Dysmenorrhea ([facility]), Oral Narcotic Medication ([facility]) Additional Instructions: Please follow-up with your primary care physician as soon as possible Prescriptions: Hydrocodone/Acetaminophen [[place]more 5-325 mg Tablet] 1 tab PO Q6 PRN #12 tablet PRN Reason: Metoclopramide HCl [Reglan 10 mg Tablet] 1 - 2 tab PO ASDIR PRN #10 tablet PRN Reason:
== END 2017-07-16 19:27 | disposition home or self-care (01) ==
LOC: ER 14:49
DX: N94.6 Dysmenorrhea, unspecified (principal); R11.2 Nausea with vomiting, unspecified; R53.1 Weakness; R53.81 Other malaise; Z87.891 Personal history of nicotine dependence
CPT/HCPCS: 99284; 96361; 96374; 36415; 83690; 85025; 81025; 80053; 81001; 74176; J2765; J7030

== ENCOUNTER 2017-08-01 12:59 | Emergency (ER) | payer SELFPAY ==
[2017-08-01] MEDS ORDERED: IPRATROPIUM/ALBUTEROL 0.5-2.5 MG/3 ML AMPUL NEB ONE (13:35)
[2017-08-01] MEDS ORDERED: ALBUTEROL SULFATE 0.083% NEB 2.5 MG/3 ML AMPUL NEB ONE ×2 (13:35→14:41)
[2017-08-01] MEDS ORDERED: PREDNISONE 20 MG TABLET PO ONE (13:35)
--- NOTE | 2017-08-01 14:33 | RADIOLOGY REPORT (SQ) ---
EXAM DESCRIPTION: CHEST PA/LAT COMPLETED DATE/TIME: 08/01/2017 2:25 pm REASON FOR STUDY: db COMPARISON: CT chest 03/01/2016 Chest films 03/12/2016, 02/12/2017 EXAM PARAMETERS: NUMBER OF VIEWS: two views TECHNIQUE: Digital Frontal and Lateral radiographic views of the chest acquired. RADIATION DOSE: NA LIMITATIONS: none FINDINGS: LUNGS AND PLEURA: No opacities, masses or pneumothorax. No pleural effusion. MEDIASTINUM AND HILAR STRUCTURES: No masses or contour abnormalities. HEART AND VASCULAR STRUCTURES: Heart normal size. No evidence for failure. BONES: No acute findings. HARDWARE: None in the chest. OTHER: No other significant finding. IMPRESSION: NO SIGNIFICANT RADIOGRAPHIC FINDING IN THE CHEST. TECHNICAL DOCUMENTATION: JOB ID: [id number] [employer]- All Rights Reserved
[2017-08-01] MEDS ORDERED: HYDROCODONE/ACETAMINOPHEN 5-325 MG TABLET PO ONE (14:40)
[2017-08-01] MEDS ORDERED: AZITHROMYCIN 250 MG TABLET PO ONE (15:31)
--- NOTE | 2017-08-01 15:33 | ER Document Report ---
ED Respiratory Problem - General Chief Complaint: Asthma Exacerbation Stated Complaint: BREATHING ISSUES Time Seen by Provider: 08/01/17 13:09 Mode of Arrival: Ambulatory Information source: Patient TRAVEL OUTSIDE OF THE [place] IN LAST 30 DAYS: No COUNTRY TRAVELED TO/FROM: [facility] - [facility] Patient complains to provider of: Cough, Short of breath Onset: Yesterday Duration: Worse/persistent Quality of pain: Achy Severity: Moderate Pain Level: 2 Context: Hx asthma Short of Breath: Moderate Chest pain/discomfort: Tightness Cough: Nonproductive Associated symptoms: Cough, Short of breath, Wheezing Similar symptoms previously: Yes Recently seen / treated by doctor: No Notes: Patient is a 31-year-old female with a history of asthma former smoker, who presents to the emergency room complaining of 2 day history of cough, shortness of breath and wheezing, states she was unable to find an inhaler at home yesterday and her symptoms have significantly worsened, cough is nonproductive, no fever - Related Data Allergies/Adverse Reactions: tramadol [Tramadol] Allergy (Verified 08/01/17 13:05) Past Medical History - General Information source: Patient - Social History Smoking Status: Former Smoker Chew tobacco use (# tins/day): No Frequency of alcohol use: None Drug Abuse: None Family History: denies: Arthritis, CAD, COPD, CVA, DM, Hyperlipidemia, Hypertension, Malignancy, Thyroid Disfunction Pulmonary Medical History: Reports: Hx Asthma, Hx Bronchitis Neurological Medical History: Reports: Hx Seizures - One seizure Renal/ Medical History: Denies: Hx Peritoneal Dialysis Past Surgical History: Reports: Hx Oral Surgery - Immunizations Immunizations up to date: Yes Hx Diphtheria, Pertussis, Tetanus Vaccination: Yes - 2016 Hx Pneumococcal Vaccination: 10/19/10 Review of Systems - Review of Systems Constitutional: No symptoms reported EENT: No symptoms reported Cardiovascular: No symptoms reported Respiratory: See HPI Gastrointestinal: No symptoms reported Genitourinary: No symptoms reported Female Genitourinary: No symptoms reported Musculoskeletal: No symptoms reported Skin: No symptoms reported Hematologic/Lymphatic: No symptoms reported Neurological/Psychological: No symptoms reported -: Yes All other systems reviewed and negative Physical Exam - Vital signs Vitals: Temp Pulse Resp BP Pulse Ox 98.8 F 110 H 20 140/78 H 93 08/01/17 13:05 08/01/17 13:05 08/01/17 13:05 08/01/17 13:05 08/01/17 13:05 Interpretation: Tachycardic, Tachypneic - General General appearance: Appears well, Alert - HEENT Head: Normocephalic, Atraumatic Eyes: Normal Pupils: PERRL - Respiratory Respiratory status: No respiratory distress Chest status: Nontender Breath sounds: Nonproductive cough, Wheezing Chest palpation: Normal - Cardiovascular Rhythm: Regular Heart sounds: Normal auscultation Murmur: No - Abdominal Inspection: Normal Distension: No distension Bowel sounds: Normal Tenderness: Nontender Organomegaly: No organomegaly - Back Back: Normal, Nontender - Extremities General upper extremity: Normal inspection, Nontender, Normal color, Normal ROM , Normal temperature General lower extremity: Normal inspection, Nontender, Normal color, Normal ROM , Normal temperature, Normal weight bearing. No: Gregg's sign - Neurological Neuro grossly intact: Yes Cognition: Normal Orientation: AAOx4 Bhakti Coma Scale Eye Opening: Spontaneous [place]field Coma Scale Verbal: Oriented [place] Coma Scale Motor: Obeys Commands Bhakti Coma Scale Total: 15 Speech: Normal Motor strength normal: LUE, RUE, LLE, RLE Sensory: Normal - Psychological Associated symptoms: Normal affect, Normal mood - Skin Skin Temperature: Warm Skin Moisture: Dry Skin Color: Normal Course - Re-evaluation Re-evalutation: 08/01/17 15:36 Patient reports feeling much better after breathing treatments in the department , x-ray shows no acute findings, she was started on antibiotics for acute bronchitis, as well as p.o. steroids, she was provided with an albuterol inhaler in the emergency department, advised to return if symptoms worsen, patient acknowledges understanding and agreement with this plan - Vital Signs Vital signs: Temp Pulse Resp BP Pulse Ox 98.8 F 110 H 20 140/78 H 93 08/01/17 13:05 08/01/17 13:05 08/01/17 13:05 08/01/17 13:05 08/01/17 13:05 - Diagnostic Test Radiology reviewed: Image reviewed, Reports reviewed Discharge - Discharge Clinical Impression: Bronchitis Condition: Stable Disposition: HOME, SELF-CARE Instructions: Antibiotic Therapy ([facility]), Asthma ([facility]), Azithromycin ([facility]), Inhaled Bronchodilators ([facility]) Additional Instructions: Follow up with your primary care provider in one to 2 days. Return to the emergency room immediately if symptoms worsen or any additional concerns. Prescriptions: Azithromycin [Zithromax 250 mg Tablet] 250 mg PO ASDIR PRN #4 tablet PRN Reason: Prednisone 40 mg PO DAILY #8 tablet
[2017-08-01 15:39] VITALS: BP 129/79
[2017-08-01] MEDS ORDERED: ALBUTEROL SULFATE HFA (90 MCG/PUFF) 8 GM MDI (1 MDI/ER DISP) IH SCH (15:45)
== END 2017-08-01 15:41 | disposition home or self-care (01) ==
LOC: ER 12:59
DX: J20.9 Acute bronchitis, unspecified (principal); J45.909 Unspecified asthma, uncomplicated; R05 Cough; R06.02 Shortness of breath; R00.0 Tachycardia, unspecified; Z87.891 Personal history of nicotine dependence; Z88.5 Allergy status to narcotic agent
CPT/HCPCS: 94640 ×2; 99283; 71020; J7512; J3490; J7620

== ENCOUNTER 2018-02-15 21:02 | Emergency (ER) | payer SELFPAY ==
[2018-02-15] MEDS ORDERED: IPRATROPIUM/ALBUTEROL 0.5-2.5 MG/3 ML AMPUL NEB ONE ×3 (21:05→21:26)
[2018-02-15] MEDS ORDERED: PREDNISONE 20 MG TABLET PO ONE (21:05)
[2018-02-15] MEDS ORDERED: ALBUTEROL SULFATE 0.083% NEB 2.5 MG/3 ML AMPUL NEB ONE ×2 (21:09→22:26)
[2018-02-15] MEDS: ALBUTEROL SULFATE 0.083% NEB 2.5 MG/3 ML AMPUL NEB SCH ×2 (21:11→22:34)
[2018-02-15] MEDS ORDERED: METHYLPREDNISOLONE INJ 125 MG/2 ML SDV IV ONE (21:26)
[2018-02-15] MEDS: MAGNESIUM SULFATE/D5W 1 GM/100 ML RTUPB IV SCH ×2 (21:36→22:31)
[2018-02-15 21:45] LABS: ABSOLUTE BASOPHILS # (AUTO) 0.1 10^3/uL (0.0-0.2); ABSOLUTE EOSINOPHILS # (AUTO) 0.8 10^3/uL (0.0-0.6); ABSOLUTE LYMPHOCYTES (AUTO) 4.1 10^3/uL (0.5-4.7); ABSOLUTE MONOCYTES (AUTO) 1.2 10^3/uL (0.1-1.4); ABSOLUTE NEUT (AUTO) 8.7 10^3/uL (1.7-8.2); BASOPHILS % (AUTO) 0.7 % (0-2); EOSINOPHILS % (AUTO) 5.6 % (0-6); HEMATOCRIT 39.1 % (36.0-47.0); HEMOGLOBIN 12.9 g/dL (12.0-15.5); LYMPHOCYTES % (AUTO) 27.3 % (13-45); MEAN CORPUSCULAR HEMOGLOBIN 28.8 pg (27.0-33.4); MEAN CORPUSCULAR VOLUME 87 fl (80-97); MONOCYTES % (AUTO) 8.2 % (3-13); PLATELET COUNT 345 10^3/uL (150-450); RED BLOOD COUNT 4.48 10^6/uL (3.72-5.28); RED CELL DISTRIBUTION WIDTH 13.5 % (11.5-14.0); SEGMENTED NEUTROPHILS % (AUTO) 58.2 % (42-78); TOTAL CELLS COUNTED % (AUTO) 100 %; WHITE BLOOD COUNT 14.9 10^3/uL (4.0-10.5)
--- NOTE | 2018-02-15 21:52 | ER Document Report ---
ED General - General Mode of Arrival: Ambulatory Information source: Patient TRAVEL OUTSIDE OF THE [place] IN LAST 30 DAYS: No COUNTRY TRAVELED TO/FROM: [place] <JOSE LEIVA - Last Filed: 02/15/18 21:46> <BRONWYN ROMOE - Last Filed: 02/15/18 23:00> - General Chief Complaint: Asthma Exacerbation Stated Complaint: TROUBLE BREATHING Time Seen by Provider: 02/15/18 21:15 Notes: Patient is a 32-year-old female with a history of asthma presents to the emergency department complaining of difficulty breathing onset a couple of days ago worsening today. Patient denies any fevers or changes in medications. (JOSE LEIVA) - Related Data Allergies/Adverse Reactions: tramadol [Tramadol] Allergy (Verified 08/01/17 13:05) Past Medical History - General Information source: Patient - Social History Smoking Status: Never Smoker Cigarette use (# per day): No Chew tobacco use (# tins/day): No Smoking Education Provided: No Pulmonary Medical History: Reports: Hx Asthma, Hx Bronchitis Neurological Medical History: Reports: Hx Seizures - One seizure Past Surgical History: Reports: Hx Oral Surgery - Immunizations Immunizations up to date: Yes Hx Diphtheria, Pertussis, Tetanus Vaccination: Yes - 2017 Hx Pneumococcal Vaccination: 10/19/10 <JOSE LEIVA - Last Filed: 02/15/18 21:46> - Social History Smoking Status: Never Smoker Family History: Reviewed & Not Pertinent Patient has suicidal ideation: No Patient has homicidal ideation: No Past Surgical History: Reports: Hx Oral Surgery <BRONWYN ROMEO - Last Filed: 02/15/18 23:00> Review of Systems - Review of Systems Constitutional: No symptoms reported EENT: No symptoms reported Cardiovascular: No symptoms reported Respiratory: See HPI Gastrointestinal: No symptoms reported Genitourinary: No symptoms reported Female Genitourinary: No symptoms reported Musculoskeletal: No symptoms reported Skin: No symptoms reported Hematologic/Lymphatic: No symptoms reported Neurological/Psychological: No symptoms reported -: Yes All other systems reviewed and negative <JOSE LEIVA - Last Filed: 02/15/18 21:46> Physical Exam <JOSE LEIVA - Last Filed: 02/15/18 21:46> <BRONWYN ROMEO - Last Filed: 02/15/18 23:00> - Vital signs Vitals: Temp Pulse Resp BP Pulse Ox 97.7 F 105 H 28 H 109/68 92 02/15/18 21:09 02/15/18 21:09 02/15/18 21:09 02/15/18 21:09 02/15/18 21:09 - Notes Notes: GENERAL: Alert, interacts well. Mild distress. HEAD: Normocephalic, atraumatic. EYES: Pupils equal, round, and reactive to light. Extraocular movements intact. ENT: Oral mucosa moist, tongue midline. NECK: Full range of motion. Supple. Trachea midline. LUNGS: Mild respiratory distress. Hypoxic. Diffuse expiratory wheezing. HEART: Regular rate and rhythm. No murmurs, gallops, or rubs. EXTREMITIES: Moves all 4 extremities spontaneously. NEUROLOGICAL: Alert and oriented x3. Normal speech. PSYCH: Normal affect, normal mood. SKIN: Warm, dry, normal turgor. No rashes or lesions noted. (JOSE LEIVA) Course - Laboratory Result Diagrams: 02/15/18 21:29 02/15/18 21:29 <JOSE LEIVA - Last Filed: 02/15/18 21:46> - Laboratory Result Diagrams: 02/15/18 21:29 02/15/18 21:29 - Diagnostic Test Radiology reviewed: Reports reviewed <BRONWYN ROMEO - Last Filed: 02/15/18 23:00> - Re-evaluation Re-evalutation: 02/15/18 22:00 Patient's respiratory status is improving with nebulizer treatments. Steroids and magnesium are ordered. Patient denies ever being intubated. 02/15/18 22:45 Wheezing nearly resolved. Patient is comfortable going home. She will be given an albuterol inhaler to go home with. She will go home with steroids for the next 3 days and is instructed to start an over the histamine such as Zyrtec. Understands and agrees with plan. Grateful for care. (BRONWYN ROMEO) - Vital Signs Vital signs: Temp Pulse Resp BP Pulse Ox 97.7 F 105 H 17 110/58 L 98 02/15/18 21:09 02/15/18 21:09 02/15/18 22:04 02/15/18 22:04 02/15/18 22:04 - Laboratory Laboratory results interpreted by me: 02/15/18 21:29 WBC 14.9 H Absolute Neutrophils 8.7 H Absolute Eosinophils 0.8 H Critical Care Note - Critical Care Note Total time excluding time spent on procedures (mins): 35 - Evaluation and management of respiratory distress, asthma exacerbation management, multiple re- evaluations, counseling patient <BRONWYN ROMEO - Last Filed: 02/15/18 23:00> Discharge <JOSE LEIVA - Last Filed: 02/15/18 21:46> <BRONWYN ROMEO - Last Filed: 02/15/18 23:00> - Discharge Clinical Impression: Respiratory distress Asthma exacerbation Qualifiers: Asthma severity: unspecified severity Asthma persistence: unspecified Qualified Code(s): J45.901 - Unspecified asthma with (acute) exacerbation Condition: Stable Disposition: HOME, SELF-CARE Instructions: Asthma ([facility]), Inhaled Bronchodilators ([facility]) Prescriptions: Albuterol Sulfate [Proair HFA Inhalation Aerosol 8.5 gm MDI] 2 puff IH Q4H PRN # 1 mdi PRN Reason: Cetirizine HCl [Zyrtec 10 mg Tablet] 1 tab PO DAILY #30 tablet Prednisone 40 mg PO DAILY #6 tablet Scribe Attestation: 02/15/18 23:00 I personally performed the services described in the documentation, reviewed and edited the documentation which was dictated to the scribe in my presence, and it accurately records my words and actions. (BRONWYN ROMEO) Scribe Documentation - Scribe Written by Juliete:: Tammi Oneal, 02/15/2018 21:52 acting as scribe for :: Bernabe <JOSE LEIVA - Last Filed: 02/15/18 21:46>
[2018-02-15 21:59] LABS: ANION GAP 7 (5-19); BLOOD UREA NITROGEN 14 mg/dL (7-20); CALCIUM 9.6 mg/dL (8.4-10.2); CARBON DIOXIDE 28 mmol/L (22-30); CHLORIDE 104 mmol/L (98-107); GLUCOSE 94 mg/dL (75-110); POTASSIUM 4.3 mmol/L (3.6-5.0); SODIUM 139.2 mmol/L (137-145)
--- NOTE | 2018-02-15 22:06 | RADIOLOGY REPORT (SQ) ---
EXAM DESCRIPTION: CHEST SINGLE VIEW COMPLETED DATE/TIME: 02/15/2018 9:50 pm REASON FOR STUDY: SOB COMPARISON: 08/01/2017 EXAM PARAMETERS: NUMBER OF VIEWS: One view. TECHNIQUE: Single frontal radiographic view of the chest acquired. RADIATION DOSE: NA LIMITATIONS: None. FINDINGS: LUNGS AND PLEURA: No opacities, masses or pneumothorax. No pleural effusion. MEDIASTINUM AND HILAR STRUCTURES: No masses. Contour normal. HEART AND VASCULAR STRUCTURES: Heart normal in size. Normal vasculature. BONES: No acute findings. HARDWARE: None in the chest. OTHER: No other significant finding. IMPRESSION: NO ACUTE RADIOGRAPHIC FINDING IN THE CHEST. TECHNICAL DOCUMENTATION: JOB ID: [id number] [employer]- All Rights Reserved Reading location - IP/workstation name: [email or web address]
[2018-02-15] MEDS ORDERED: ALBUTEROL SULFATE HFA (90 MCG/PUFF) 8 GM MDI (1 MDI/ER DISP) IH ONE (22:26)
[2018-02-15 23:00] VITALS: BP 108/68
== END 2018-02-15 23:00 | disposition home or self-care (01) ==
LOC: ER 21:02
DX: J45.901 Unspecified asthma with (acute) exacerbation (principal)
CPT/HCPCS: 94640 ×2; 99284; 96375; 96365; 36415; 85025; 80048; 71045; J2930; J3475; J3490; J7620

== ENCOUNTER 2018-03-16 17:51 | Emergency (ER) | payer SELFPAY ==
[2018-03-16] MEDS ORDERED: IPRATROPIUM/ALBUTEROL 0.5-2.5 MG/3 ML AMPUL NEB ONE ×2 (18:46→18:50)
[2018-03-16] MEDS ORDERED: METHYLPREDNISOLONE INJ 125 MG/2 ML SDV IV ONE (18:49)
--- NOTE | 2018-03-16 18:52 | ER Document Report ---
ED Respiratory Problem - General Chief Complaint: Breathing Difficulty Stated Complaint: DIFFICULTY BREATHING Time Seen by Provider: 03/16/18 18:49 Notes: 32 years old female with a history of asthma presents today with 2-3 day history of increasing exacerbation of asthma, but has been wheezing for a week. She is allergic to environmental pollens which triggers the asthma. No fever chills or cough. Denies any chest pain. Denies any other constitutional symptoms I have greeted and performed a rapid initial assessment of this patient. A comprehensive ED assessment and evaluation of the patient, analysis of test results and completion of the medical decision making process will be conducted by additional ED providers. PHYSICAL EXAMINATION: GENERAL: Well-appearing, well-nourished and moderate to severe acute distress. HEAD: Atraumatic, normocephalic. EYES: Pupils equal round extraocular movements intact, conjunctiva are normal. ENT: Nares patent NECK: Normal range of motion LUNGS: Using accessory muscles to breathe, tripoding, expiratory wheezing throughout the lung field Musculoskeletal: Normal range of motion NEUROLOGICAL: Normal speech, normal gait. PSYCH: Normal mood, normal affect. SKIN: Warm, Dry, normal turgor, no rashes or lesions noted. TRAVEL OUTSIDE OF THE U.S. IN LAST 30 DAYS: No COUNTRY TRAVELED TO/FROM: [facility] - Related Data Allergies/Adverse Reactions: tramadol [Tramadol] Allergy (Verified 08/01/17 13:05) Past Medical History - General Information source: Patient - Social History Smoking Status: Never Smoker Cigarette use (# per day): No Chew tobacco use (# tins/day): No Smoking Education Provided: No Frequency of alcohol use: Rare Drug Abuse: None Lives with: Family Family History: Reviewed & Not Pertinent Pulmonary Medical History: Reports: Hx Asthma, Hx Bronchitis Neurological Medical History: Reports: Hx Seizures - One seizure Renal/ Medical History: Denies: Hx Peritoneal Dialysis Past Surgical History: Reports: Hx Oral Surgery - Immunizations Immunizations up to date: Yes Hx Diphtheria, Pertussis, Tetanus Vaccination: Yes - 2017 Hx Pneumococcal Vaccination: 10/19/10 Review of Systems - Review of Systems Notes: Dictated Physical Exam - Vital signs Vitals: Temp Pulse Resp BP Pulse Ox 98.5 F 113 H 26 H 136/85 H 93 03/16/18 17:55 03/16/18 17:55 03/16/18 17:55 03/16/18 17:55 03/16/18 17:55 - Notes Notes: Dictated Course - Vital Signs Vital signs: Temp Pulse Resp BP Pulse Ox 98.5 F 113 H 26 H 136/85 H 93 03/16/18 17:55 03/16/18 17:55 03/16/18 17:55 03/16/18 17:55 03/16/18 17:55
--- NOTE | 2018-03-16 18:53 | ER Document Report ---
ED Medical Screen (RME) - General Chief Complaint: Breathing Difficulty Stated Complaint: DIFFICULTY BREATHING Time Seen by Provider: 03/16/18 18:49 Notes: [facility] [address] [facility] [place] [address] ED Respiratory Patient Name: YENNIFER TRUJILLO Date of : 83 Patient Status: Emergency Emergency Provider: BEN MICHAUD Date: 03/16/18 18:50 Initialization Date: 03/16/18 18:50 ED Respiratory Problem - General Chief Complaint: Breathing Difficulty Stated Complaint: DIFFICULTY BREATHING Time Seen by Provider: 03/16/18 18:49 Notes: 32 years old female with a history of asthma presents today with 2-3 day history of increasing exacerbation of asthma, but has been wheezing for a week. She is allergic to environmental pollens which triggers the asthma. No fever chills or cough. Denies any chest pain. Denies any other constitutional symptoms I have greeted and performed a rapid initial assessment of this patient. A comprehensive ED assessment and evaluation of the patient, analysis of test results and completion of the medical decision making process will be conducted by additional ED providers. PHYSICAL EXAMINATION: GENERAL: Well-appearing, well-nourished and moderate to severe acute distress. HEAD: Atraumatic, normocephalic. EYES: Pupils equal round extraocular movements intact, conjunctiva are normal. ENT: Nares patent NECK: Normal range of motion LUNGS: Using accessory muscles to breathe, tripoding, expiratory wheezing throughout the lung field Musculoskeletal: Normal range of motion NEUROLOGICAL: Normal speech, normal gait. PSYCH: Normal mood, normal affect. TRAVEL OUTSIDE OF THE [place] IN LAST 30 DAYS: No COUNTRY TRAVELED TO/FROM: [facility] - Related Data Allergies/Adverse Reactions: tramadol [Tramadol] Allergy (Verified 08/01/17 13:05) Past Medical History - Social History Cigarette use (# per day): No Chew tobacco use (# tins/day): No Frequency of alcohol use: Rare Drug Abuse: None Pulmonary Medical History: Reports: Hx Asthma, Hx Bronchitis Neurological Medical History: Reports: Hx Seizures - One seizure Renal/ Medical History: Denies: Hx Peritoneal Dialysis Past Surgical History: Reports: Hx Oral Surgery - Immunizations Immunizations up to date: Yes Hx Diphtheria, Pertussis, Tetanus Vaccination: Yes - 2017 Physical Exam - Vital signs Vitals: Temp Pulse Resp BP Pulse Ox 98.5 F 113 H 26 H 136/85 H 93 03/16/18 17:55 03/16/18 17:55 03/16/18 17:55 03/16/18 17:55 03/16/18 17:55 Course - Vital Signs Vital signs: Temp Pulse Resp BP Pulse Ox 98.5 F 113 H 26 H 136/85 H 93 03/16/18 17:55 03/16/18 17:55 03/16/18 17:55 03/16/18 17:55 03/16/18 17:55
[2018-03-16] MEDS ORDERED: NORMAL SALINE 1000 ML 1,000 ML IV PRN (18:56)
[2018-03-16] MEDS ORDERED: ALBUTEROL SULFATE 0.083% NEB 2.5 MG/3 ML AMPUL NEB ONE (19:13)
[2018-03-16] MEDS ORDERED: ALBUTEROL SULFATE HFA (90 MCG/PUFF) 8 GM MDI (1 MDI/ER DISP) IH ONE (19:14)
[2018-03-16] MEDS: MAGNESIUM SULFATE/D5W 1 GM/100 ML RTUPB IV SCH ×4 (19:34→19:53)
--- NOTE | 2018-03-16 19:37 | ER Document Report ---
ED General - General Chief Complaint: Breathing Difficulty Stated Complaint: DIFFICULTY BREATHING Time Seen by Provider: 03/16/18 18:49 Mode of Arrival: Ambulatory Information source: Patient Notes: 32-year-old female with asthma presents with complaint of shortness of breath. Patient states shortness of breath started 4 days prior to arrival and has progressively worsened. She has had associated cough and wheezing. She has no asthma medications at home. She denies any hospitalizations or intubations for her asthma. She denies any recent illnesses including fever, cough, rhinorrhea. Patient denies tobacco use. She does state that she has seasonal allergies. TRAVEL OUTSIDE OF THE [place] IN LAST 30 DAYS: No COUNTRY TRAVELED TO/FROM: [facility] Onset: Last week Onset/Duration: Gradual, Worse Quality of pain: No pain Severity: None Associated symptoms: Allergy/hay fever, Nonproductive cough, Shortness of breath Exacerbated by: Movement, Coughing Relieved by: Denies Similar symptoms previously: Yes Recently seen / treated by doctor: No - Related Data Allergies/Adverse Reactions: tramadol [Tramadol] Allergy (Verified 08/01/17 13:05) Past Medical History - General Information source: Patient, [facility] Records - Social History Smoking Status: Never Smoker Cigarette use (# per day): No Chew tobacco use (# tins/day): No Frequency of alcohol use: Occasional Drug Abuse: None Lives with: Family Family History: Reviewed & Not Pertinent Patient has suicidal ideation: No Patient has homicidal ideation: No Pulmonary Medical History: Reports: Hx Asthma, Hx Bronchitis Neurological Medical History: Reports: Hx Seizures - One seizure Renal/ Medical History: Denies: Hx Peritoneal Dialysis Past Surgical History: Reports: Hx Oral Surgery - Immunizations Immunizations up to date: Yes Hx Diphtheria, Pertussis, Tetanus Vaccination: Yes - 2017 Hx Pneumococcal Vaccination: 10/19/10 Review of Systems - Review of Systems Notes: REVIEW OF SYSTEMS: CONSTITUTIONAL : Denies fever, chills, or sweats. Denies recent illness. Denies weight loss, recent hospitalizations. EENT: Denies visual changes, eye pain. Denies nasal or sinus congestion or discharge. Denies sore throat, oral lesions, difficulty swallowing. CARDIOVASCULAR: Denies chest pain. Denies palpitations or racing or irregular heart beat. Denies lower extremity edema. RESPIRATORY: admits to shortness of breath, wheezing, cough. GASTROINTESTINAL: Denies abdominal pain or distention. Denies nausea, vomiting , or diarrhea. Denies blood in vomitus, stools, or per rectum. Denies black, tarry stools. Denies constipation. GENITOURINARY: Denies difficulty urinating, painful urination, burning, frequency, blood in urine, or vaginal discharge. MUSCULOSKELETAL: Denies back or neck pain or stiffness. Denies joint pain or swelling. SKIN: Denies rash, lesions or sores. HEMATOLOGIC : Denies easy bruising or bleeding. LYMPHATIC: Denies swollen, enlarged glands. NEUROLOGICAL: Denies confusion or altered mental status. Denies passing out or loss of consciousness. Denies dizziness or lightheadedness. Denies headache. Denies weakness or paralysis or loss of use of either side. Denies problems with gait or speech. Denies sensory loss, numbness, or tingling. Denies seizures. PSYCHIATRIC: Denies anxiety or stress. Denies depression, suicidal ideation, or homicidal ideation. Physical Exam - Vital signs Vitals: Temp Pulse Resp BP Pulse Ox 98.5 F 113 H 26 H 136/85 H 93 03/16/18 17:55 03/16/18 17:55 03/16/18 17:55 03/16/18 17:55 03/16/18 17:55 Interpretation: Normal, Hypertensive, Tachycardic, Hypoxic, Tachypneic - Notes Notes: PHYSICAL EXAMINATION: GENERAL: Well-appearing, well-nourished and in no acute distress. HEAD: Atraumatic, normocephalic. EYES: Pupils equal round and reactive to light, extraocular movements intact, conjunctiva are normal. ENT: Nares patent, oropharynx clear without exudates. Moist mucous membranes. NECK: Normal range of motion, supple without lymphadenopathy LUNGS: He is wheezing in all lung [place], no accessory muscle use, tachypneic, hypoxic. HEART: Regular rate and rhythm without murmurs ABDOMEN: Soft, nontender, nondistended abdomen. No guarding, no rebound. No masses appreciated. Female : deferred Musculoskeletal: Normal range of motion, no pitting or edema. No cyanosis. NEUROLOGICAL: Cranial nerves grossly intact. Normal speech, normal gait. Normal sensory, motor exams PSYCH: Normal mood, normal affect. SKIN: Warm, Dry, normal turgor, no rashes or lesions noted. Course - Re-evaluation Re-evalutation: Chest X-Ray 03/16/18 18:49 IMPRESSION: NO ACUTE RADIOGRAPHIC FINDING IN THE CHEST. 32-year-old female with asthma presents with complaint of shortness of breath. Patient states shortness of breath started 4 days prior to arrival and has progressively worsened. She has had associated cough and wheezing. She has no asthma medications at home. She denies any hospitalizations or intubations for her asthma. She denies any recent illnesses including fever, cough, rhinorrhea. Patient denies tobacco use. She does state that she has seasonal allergies. Patient was seen by myself upon arrival. Vital signs were reviewed. Patient is afebrile, normotensive. Patient is mildly hypoxic with O2 saturation of 93%. Patient does not appear toxic or dehydrated. They are in no acute distress. Previous medical records and nursing notes reviewed. Significant findings include a lung exam that is significant for diffuse wheezing. Patient is without accessory muscle use. She is able to speak in full sentences. Patient received 2 DuoNeb's and 2 albuterol treatments as well as Solu-Medrol and magnesium during her ED course. 03/16/18 20:16 On reevaluation patient states she is feeling much better. Repeat lung exam is still significant for diffuse wheezing. Patient will be ambulated on pulse ox. 03/16/18 20:17 03/17/18 01:42 Patient was ambulated on pulse ox and maintain an O2 saturation of 97%. She was provided an albuterol MDI through the emergency department. She will be discharged home with a prescription for prednisone. Patient provided the opportunity to ask questions, and express concerns. Discharge instructions discussed. Patient is agreeable with discharge home. Return indications explained and discussed with the patient who displays understanding. Patient encouraged to return to the emergency department immediately with any concerns. - Vital Signs Vital signs: Temp Pulse Resp BP Pulse Ox 98.5 F 113 H 20 116/75 97 03/16/18 17:55 03/16/18 17:55 03/16/18 21:01 03/16/18 21:00 03/16/18 21:01 - Diagnostic Test Radiology reviewed: Image reviewed, Reports reviewed - EKG Interpretation by [facility] EKG shows normal: Sinus rhythm Rate: Tachycardia Rhythm: NSR Discharge - Discharge Clinical Impression: Asthma exacerbation Qualifiers: Asthma severity: moderate Asthma persistence: unspecified Qualified Code(s): J45.901 - Unspecified asthma with (acute) exacerbation Condition: Good Disposition: HOME, SELF-CARE Instructions: Asthma ([facility]) Additional Instructions: Follow up with your physician tomorrow for further care or return to the ED IMMEDIATELY if symptoms worsen or new concerns occur. If you cannot afford to follow up with your primary care physician a list of low cost clinics have been provided at the end of your discharge papers as well. Prescriptions: Prednisone [Deltasone 20 mg Tablet] 3 tab PO DAILY 5 Days #15 tablet Forms: Elevated Blood Pressure
--- NOTE | 2018-03-16 19:37 | RADIOLOGY REPORT (SQ) ---
EXAM DESCRIPTION: CHEST SINGLE VIEW COMPLETED DATE/TIME: 03/16/2018 7:27 pm REASON FOR STUDY: Shortness of breath COMPARISON: 02/15/2018 EXAM PARAMETERS: NUMBER OF VIEWS: One view. TECHNIQUE: Single frontal radiographic view of the chest acquired. RADIATION DOSE: NA LIMITATIONS: None. FINDINGS: LUNGS AND PLEURA: No opacities, masses or pneumothorax. No pleural effusion. MEDIASTINUM AND HILAR STRUCTURES: No masses. Contour normal. HEART AND VASCULAR STRUCTURES: Heart normal in size. Normal vasculature. BONES: No acute findings. HARDWARE: None in the chest. OTHER: No other significant finding. IMPRESSION: NO ACUTE RADIOGRAPHIC FINDING IN THE CHEST. TECHNICAL DOCUMENTATION: JOB ID: [id number] 1996 [employer]- All Rights Reserved Reading location - IP/workstation name: [email or web address]
[2018-03-16 21:30] VITALS: BP 116/75
== END 2018-03-16 21:30 | disposition home or self-care (01) ==
LOC: ER 17:51
DX: J45.901 Unspecified asthma with (acute) exacerbation (principal); R06.02 Shortness of breath; R05 Cough; R00.0 Tachycardia, unspecified; Z88.5 Allergy status to narcotic agent
CPT/HCPCS: 94640 ×2; 99285; 96375; 96365; 71045; J2930; J3475; J3490; J7620

== ENCOUNTER 2018-05-30 05:03 | Emergency (ER) | payer SELFPAY ==
[2018-05-30] MEDS ORDERED: METHYLPREDNISOLONE INJ 125 MG/2 ML SDV IV ONE (05:09)
[2018-05-30] MEDS ORDERED: IPRATROPIUM/ALBUTEROL 0.5-2.5 MG/3 ML AMPUL NEB ONE ×2 (05:09→10:42)
--- NOTE | 2018-05-30 05:11 | ER Document Report ---
Doctor's Note Notes: 05/30/18 05:10 I performed a quick triage evaluation the patient. Patient is a pleasant 32- year-old female presents with complaint of difficulty breathing and wheezing. She has a history of asthma has required intubation in the past. She is out of her inhaler. She does not difficulty breathing for last few days. No fevers. No vomiting. No other complaints at this time. On exam patient has very coarse breath sounds with poor air movement and lung tightness and wheezing. She has some accessory muscle use. She speaks in 2 word sentences. I have ordered BiPAP, Solu-Medrol, magnesium, breathing treatments. Patient is on monitor. 05/30/18 05:34 On reevaluation patient is moving much more air since being placed in the BiPAP and receiving first duonebs. Will order 2 more albuterol treatments.
[2018-05-30] MEDS: MAGNESIUM SULFATE/D5W 1 GM/100 ML RTUPB IV SCH ×2 (05:20→05:40)
[2018-05-30 05:28] LABS: ABSOLUTE BASOPHILS # (AUTO) 0.1 10^3/uL (0.0-0.2); ABSOLUTE EOSINOPHILS # (AUTO) 0.5 10^3/uL (0.0-0.6); ABSOLUTE LYMPHOCYTES (AUTO) 4.3 10^3/uL (0.5-4.7); ABSOLUTE MONOCYTES (AUTO) 1.3 10^3/uL (0.1-1.4); ABSOLUTE NEUT (AUTO) 3.9 10^3/uL (1.7-8.2); BASOPHILS % (AUTO) 0.7 % (0-2); HEMOGLOBIN 13.9 g/dL (12.0-15.5); LYMPHOCYTES % (AUTO) 42.4 % (13-45); MEAN CORPUSCULAR HEMOGLOBIN 28.8 pg (27.0-33.4); MEAN CORPUSCULAR HGB CONC 33.1 g/dL (32.0-36.0); MEAN CORPUSCULAR VOLUME 87 fl (80-97); MONOCYTES % (AUTO) 13.2 % (3-13); PLATELET COUNT 325 10^3/uL (150-450); RED BLOOD COUNT 4.83 10^6/uL (3.72-5.28); RED CELL DISTRIBUTION WIDTH 14.1 % (11.5-14.0); SEGMENTED NEUTROPHILS % (AUTO) 38.7 % (42-78); TOTAL CELLS COUNTED % (AUTO) 100 %; WHITE BLOOD COUNT 10.1 10^3/uL (4.0-10.5)
[2018-05-30] MEDS ORDERED: ALBUTEROL SULFATE 0.083% NEB 2.5 MG/3 ML AMPUL NEB ONE ×2 (05:34→07:28)
--- NOTE | 2018-05-30 05:56 | RADIOLOGY REPORT (SQ) ---
EXAM DESCRIPTION: XR CHEST 1 VIEW COMPLETED DATE/TME: 05/30/2018 05:08 chest CLINICAL HISTORY: difficulty breathing COMPARISON: 03/16/2018 FINDINGS: Single frontal view of the chest. The cardiomediastinal silhouette has normal size and contour. No consolidation, pneumothorax, or pleural effusion. No displaced rib fractures identified. Leads overlie the chest. Upper abdominal soft tissues are unremarkable. IMPRESSION: 1. No acute pulmonary process identified.
[2018-05-30 05:58] LABS: ANION GAP 11 (5-19); BLOOD UREA NITROGEN 12 mg/dL (7-20); CALCIUM 9.9 mg/dL (8.4-10.2); CARBON DIOXIDE 26 mmol/L (22-30); CHLORIDE 106 mmol/L (98-107); GLUCOSE 99 mg/dL (75-110); POTASSIUM 4.4 mmol/L (3.6-5.0); SODIUM 142.8 mmol/L (137-145)
--- NOTE | 2018-05-30 06:13 | ER Document Report ---
ED Respiratory Problem - General Mode of Arrival: Ambulatory Information source: Patient TRAVEL OUTSIDE OF THE [place] IN LAST 30 DAYS: No COUNTRY TRAVELED TO/FROM: [place] <JOSE LEIVA - Last Filed: 05/30/18 08:03> <CELESTE KUMAR - Last Filed: 05/30/18 11:24> - General Chief Complaint: Asthma Exacerbation Stated Complaint: DIFFICULTY BREATHING Time Seen by Provider: 05/30/18 05:08 Notes: Patient is a 32 year old female with asthma and a past history of intubation presents to the emergency department complaining of difficulty breathing onset around 0300 this morning. Patient states she woke up this morning having shortness and breath wheezing and proceeded to come to the emergency department. Upon arrival, patient was in respiratory distress and was placed on BiPAP and given Solu-Medrol, magnesium IV, 2 DuoNeb's and 4 albuterol. At bedside patient states she feels a lot better. She denies any recent colds, fevers, vomiting or recent trouble breathing. (JOSE LEIVA) - Related Data Allergies/Adverse Reactions: tramadol [Tramadol] Allergy (Verified 08/01/17 13:05) Past Medical History - General Information source: Patient - Social History Smoking Status: Former Smoker Chew tobacco use (# tins/day): No Frequency of alcohol use: Heavy Drug Abuse: None Family History: Reviewed & Not Pertinent Patient has suicidal ideation: No Patient has homicidal ideation: No Pulmonary Medical History: Reports: Hx Asthma, Hx Bronchitis Neurological Medical History: Reports: Hx Seizures - One seizure Past Surgical History: Reports: Hx Oral Surgery - Immunizations Immunizations up to date: Yes Hx Diphtheria, Pertussis, Tetanus Vaccination: Yes - 2017 Hx Pneumococcal Vaccination: 10/19/10 <JOES LEIVA - Last Filed: 05/30/18 08:03> Review of Systems - Review of Systems Constitutional: No symptoms reported EENT: No symptoms reported Cardiovascular: No symptoms reported Respiratory: See HPI, Short of breath, Wheezing Gastrointestinal: No symptoms reported Genitourinary: No symptoms reported Female Genitourinary: No symptoms reported Musculoskeletal: No symptoms reported Skin: No symptoms reported Hematologic/Lymphatic: No symptoms reported Neurological/Psychological: No symptoms reported -: Yes All other systems reviewed and negative <JOSE LEIVA - Last Filed: 05/30/18 08:03> Physical Exam <ACLIJOSE - Last Filed: 05/30/18 08:03> <CELESTE KUMAR - Last Filed: 05/30/18 11:24> - Vital signs Vitals: Resp Pulse Ox 23 H 99 05/30/18 05:08 05/30/18 05:08 - Notes Notes: GENERAL: Alert, interacts well. On BiPAP at bedside. No acute distress. HEAD: Normocephalic, atraumatic. EYES: Pupils equal, round, and reactive to light. Extraocular movements intact. ENT: Oral mucosa moist, tongue midline. NECK: Full range of motion. Supple. Trachea midline. LUNGS: Tachypneic. Inspiratory and expiratory wheezes, rhonchi when coughing, some retractions. On BiPAP. No respiratory distress. HEART: Regular rate and rhythm. No murmurs, gallops, or rubs. ABDOMEN: Soft, non-tender. Non-distended. EXTREMITIES: Moves all 4 extremities spontaneously. No edema, radial pulses 2/4 bilaterally. NEUROLOGICAL: Alert and oriented x3. Normal speech. PSYCH: Normal affect, normal mood. SKIN: Warm, dry, normal turgor. No rashes or lesions noted. (JOSE LEIVA) Course - Laboratory Result Diagrams: 05/30/18 05:15 05/30/18 05:15 <CALIJOSE - Last Filed: 05/30/18 08:03> - Laboratory Result Diagrams: 05/30/18 05:15 05/30/18 05:15 - Diagnostic Test Radiology reviewed: Image reviewed, Reports reviewed - Chest x-ray does not show any acute disease process. - EKG Interpretation by [facility] EKG shows normal: Sinus rhythm, [place], Intervals, QRS Complexes, ST-T Waves Rate: Normal - 79 Rhythm: NSR <CELESTE KUMAR - Last Filed: 05/30/18 11:24> - Vital Signs Vital signs: Temp Pulse Resp BP Pulse Ox 9 L 111/69 100 05/30/18 11:00 05/30/18 09:01 05/30/18 11:00 - Laboratory Laboratory results interpreted by nd: 05/30/18 05:15 RDW 14.1 H Seg Neutrophils % 38.7 L Monocytes % 13.2 H Discharge <JOSE LEIVA - Last Filed: 05/30/18 08:03> <CELESTE KUMAR - Last Filed: 05/30/18 11:24> - Discharge Clinical Impression: Exacerbation of asthma Qualifiers: Asthma severity: severe Asthma persistence: persistent Qualified Code(s): J45.51 - Severe persistent asthma with (acute) exacerbation Condition: Stable Disposition: HOME, SELF-CARE Additional Instructions: Use the albuterol inhaler 2 puffs every 2-4 hours as needed for wheezing. Start the prednisone prescription tomorrow. Drink plenty of fluids and rest today. Follow-up with a local medical doctor to manage your asthma--it would be best to be on inhaled steroids all the time to prevent asthma exacerbations. RETURN TO THE EMERGENCY ROOM IF ANY NEW OR WORSENING SYMPTOMS. Prescriptions: Albuterol Sulfate [Proair HFA] 1 - 2 puff IH Q4 PRN #1 inhaler PRN Reason: Prednisone [Deltasone 10 mg Tablet] 10 mg PO ASDIR PRN #21 tablet PRN Reason: Scribe Attestation: 05/30/18 07:27 I personally performed the services described in the documentation, reviewed and edited the documentation which was dictated to the scribe in my presence, and it accurately records my words and actions. (CELESTE KUMAR) [employer] Documentation - Scribe Written by Tammi:: Tammi Oneal, 05/30/2018 06:22 acting as scribe for :: Nicole <JOSE LEIVA - Last Filed: 05/30/18 08:03>
[2018-05-30] MEDS ORDERED: NORMAL SALINE 1000 ML 1,000 ML IV ONE (06:16)
[2018-05-30] MEDS ORDERED: PREDNISONE 20 MG TABLET PO ONE (10:42)
[2018-05-30] MEDS ORDERED: ALBUTEROL SULFATE HFA (90 MCG/PUFF) 8 GM MDI (1 MDI/ER DISP) IH ONE (11:20)
[2018-05-30 11:27] VITALS: BP 122/71
--- NOTE | 2018-05-30 17:33 | EKG REPORT ---
SEVERITY:- NORMAL ECG - SINUS RHYTHM : Confirmed by: Monserrat Bruner MD 30-May-2018 17:32:33
== END 2018-05-30 11:43 | disposition home or self-care (01) ==
LOC: ER 05:03
DX: J45.51 Severe persistent asthma with (acute) exacerbation (principal); R06.02 Shortness of breath; Z87.891 Personal history of nicotine dependence
CPT/HCPCS: 93005; 94640 ×2; 99285; 96375; 96365; 36415; 84703; 85025; 80048; 71045; 93010; 94660; J2930; J3475; J7512; J7030; J3490; J7620